=== PATIENT | male | born 1990 | race Hispanic/Latino ===

== ENCOUNTER 2020-06-17 06:11 | Emergency (ER) | payer BC ==
[~2020-06-17] VITALS: Ht 167.6 cm; Wt 77.1 kg
[2020-06-17] MEDS ORDERED: SODIUM CHLORIDE 0.9% 1000ML 1,000 ML IV STA (06:26)
[2020-06-17] MEDS ORDERED: LORAZEPAM INJ 2 MG/ML VIAL IV ONE (06:30)
[2020-06-17] MEDS ORDERED: LACTATED RINGER'S 1,000 ML ONE (06:43)
[2020-06-17] MEDS ORDERED: SODIUM CHLORIDE 0.9% 1000ML 1,000 ML ONE (06:43)
--- NOTE | 2020-06-17 06:57 | Emergency Department Note ---
History of Present Illnes History of Present Illness Chief Complaint: Respiratory History of Present Illness This is a 30 year old male c/o chest discomfort , heart racing for 30 minutes P TA. He went to bed about 9 pm, woke up at 4 am, had some energy tea drink, went to gym, work out and went to work but he felt bad and came to ER. 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 Historian: Patient Arrival Mode: Car Bonderite Operator Required: No Onset (how long ago): minute(s) Radiation: Reports non-radiation Severity: moderate Onset quality: sudden Duration (how long): hour(s) Timing of current episode: intermittent Progression: waxing and waning Chronicity: new Relieving factors: none Exacerbating factors: none Associated symptoms: Reports chest pain, Reports diaphoresis Treatments prior to arrival: none Past Medical/Family History Physician Review I have reviewed the patient's past medical and family history. Any updates have been documented here. Past Medical History Recent Fever: No Clinical Suspicion of Infectio: No New/Unexplained Change in Ment: No Past Medical History: None Social History Smoking Cessation: Never Smoker Alcohol Use: Social Review of Systems Review of Systems Constitutional: Reports no symptoms EENTM: Reports no symptoms Cardiovascular: Reports as per HPI, Reports palpitations Respiratory: Reports no symptoms Gastrointestinal: Reports no symptoms Genitourinary: Reports no symptoms Musculoskeletal: Reports no symptoms Integumentary: Reports no symptoms Neurological: Reports no symptoms Psychological: Reports anxiety Endocrine: Reports no symptoms Hematological/Lymphatic: Reports no symptoms Physical Exam Related Data Allergies: Coded Allergies: No Known Allergies (Unverified , 06/17/20) Triage Vital Signs Vital Signs Date Time Temp Pulse Resp B/P (MAP) Pulse Ox O2 Delivery O2 Flow Rate FiO2 06/17/20 06:17 98.2 92 22 140/90 99 Room Air Vital signs reviewed: Yes Physical Exam CONSTITUTIONAL Constitutional: Present well-developed, Present well-nourished HENT HENT: Present normocephalic, Present atraumatic, Present oropharynx clear/moist, Present nose normal HENT L/R: Present left ext ear normal, Present right ext ear normal EYES Eyes: Reports PERRL, Reports conjunctivae normal NECK Neck: Present ROM normal PULMONARY Pulmonary: Present effort normal, Present breath sounds normal CARDIOVASCULAR Cardiovascular: Present regular rhythm, Present heart sounds normal, Present capillary refill normal, Present normal rate GASTROINTESTINAL Abdominal: Present soft, Present nontender, Present bowel sounds normal GENITOURINARY Genitourinary: Present exam deferred SKIN Skin: Present warm, Present dry MUSCULOSKELETAL Musculoskeletal: Present ROM normal NEUROLOGICAL Neurological: Present alert, Present oriented x 3, Present no gross motor or sensory deficits PSYCHOLOGICAL Psychological: Present mood/affect normal, Present judgement normal Results Laboratory Lab results reviewed: Yes Procedures 12 Lead ECG Interpretation ECG Interpretation : ECG: ECG 1 Bonderite Operator: Interpreted by ED physician Date: Jun 17, 2020 Time: 06:42 Prior ECG tracings: reviewed Rhythm: sinus rhythm Rate: normal BPM: 86 QRS axis: normal ST segments normal: Yes T wave inversion: II, III, aVF, V5, V6 T waves flattening: aVR Clinical Impression: abnormal ECG Assessment & Plan Medical Decision Making MDM chest pain, stimulant uses, anxiety Assessment & Plan Final Impression: (1) Palpitations (2) Chest discomfort (3) Abnormal electrocardiogram [ECG] [EKG] Last Vital Signs Date Time Temp Pulse Resp B/P (MAP) Pulse Ox O2 Delivery O2 Flow Rate FiO2 06/17/20 06:17 98.2 92 22 140/90 99 Room Air Medications in the ED Ativan 2 mg IV Physician Attestation Provider Attestation tx to LAKSHMI Benoit MD Jun 17, 2020 06:33
--- OUTSIDE RECORDS SUMMARY | 2020-06-17 07:28 | XMS REPORT | Continuity of Care Document ---
Author Author [facility] Organization [facility] Address [address] [place] [address] Phone Unavailable Care Team Providers Care Centerless Grinder Set Up Operator Name Role Phone Eladio JAFFE, Sarah Alatorre PCP DR NAVIN MAJANO Attphymoises Unavailable FLORECITA FINK Attphymoises Unavailable DR NAVIN MAJANO Admadithya Unavailable Problems This patient has no known problems. Allergies, Adverse Reactions, Alerts This patient has no known allergies or adverse reactions. Social History Social Habit Start Date Stop Date Quantity Comments Source History of tobacco use User of smokeless tobacc o Cristian Mosher Sex Assigned At Jam zofia Vidhi Tobacco use and exposure 2018-10-26 00:00:00 2018-10-26 00:00:00 Form er user Cristian Mosher Alcohol intake 2018-10-26 00:00:00 2018-10-26 00:00:00 Current drinker of alcohol (finding) Cristian Mosher Alcohol Comment 2018-10-26 00:00:00 2018-10-26 00:00:00 social Cristian Mosher Smoking Status Start Date Stop Date Source Never smoker Cristian garay Medications This patient has no known medications. Procedures This patient has no known procedures. Plan of Care Planned Activity Planned Date Details Comments Source Future Scheduled Test 2020-02-15 00:00:00 INFLUENZA VACCINE [code = INFLUENZA VACCINE] Cristian Mosher Encounters Start Date/Time End Date/Time Encounter Type Admission Type Att[facility] [place] Facility Care Department Encounter ID Source 2020-05-19 07:13:00 2020-05-19 12:10:00 Outpatient [facility] [id number] [facility] 2020-03-05 06:19:00 2020-03-05 09:53:00 Outpatient [facility] [id number] [facility] Results Test Description Test Time Test Comments Results Result Comments Source US ABDOMEN COMPLETE [place] [address] Patient Name: ZECHARIAH ALEXANDER MR #: [id number] : 1990 Age/Sex: 27/M Req #: [id number] Adm Physician: Ordered by: DANAE JAFFE, FLORECITA Barnes MD Report #: [id number] Location: US Room/Bed: Procedure: [id number] US/US ABDOMEN COMPLETE Exam Date: Exam Time: REPORT STATUS: Signed PROCEDURE: ABDOMINAL ULTRASOUND COMPARISON: None. INDICATIONS: Elevated ALT FINDINGS: Liver: 14.7 cm in length in the right midclavicular line. Normal hepatic parenchymal echogenicity. No focal mass. Main portal vein: 1.2 cm in caliber. Hepatopedal flow. Gallbladder: Unremarkable in sonographic appearance without wall thickening, shadowing calculus, or pericholecystic fluid. Common Bile Duct: 0.3 cm in caliber. No echogenic filling defect. Sonographic Garcia's sign: Reported as negative. Right kidney: 13.1 cm in length. No solid or cystic mass, echogenic calculi, or hydronephrosis. Normal renal cortical echogenicity. Left kidney: 12.2 cm in length. No solid or cystic mass, echogenic calculi, or hydronephrosis. Normal renal cortical echogenicity. Spleen: 12 cm in length. Uniform parenchymal echotexture. Pancreas: The visualized portions of the pancreas are normal. Inferior vena cava: Patent. Aorta: Non- aneurysmal. Ascites: None. CONCLUSION: Unremarkable abdominal ultrasound. Dictated by: Mann Villalobos M.D. on 06/20/2017 at 12:28 Electronically approved by: Mann Villalobos M.D. on 06/20/2017 at 12:28 Dictated By: MANN VILLALOBOS MD [id number] Transcribed By: EDILSON on 06/20/17 1228 COPY TO: FLORECITA FINK
--- OUTSIDE RECORDS SUMMARY | 2020-06-17 07:28 | XMS REPORT | Clinical Summary ---
Author Author [facility] Organization [facility] Address Unknown Phone Unavailable Care Team Providers Care Lead Miner Name Role Phone Landry Hendricks MD PCP Allergies No Known Active Allergies Medications No known medications Active Problems Not on file Surgical History Surgery Date Site/Laterality Comments SKIN GRAFT FULL THICKNESS Right LEG Social History Date Tobacco Use Types Packs/Day Years Used Never Smoker Smokeless Tobacco: Former Quit: 2018 User Drinks/Week oz/Week Comments Alcohol Use social Yes Sex Assigned at Date Recorded Not on file Last Filed Vital Signs Not on file Plan of Treatment Health Maintenance Due Date Last Done Comments INFLUENZA VACCINE 02/15/2020 Results Not on fileafter 06/17/2019 Insurance Type Payer Benefit Subscriber ID Effective Phone Address Plan / Dates Group PPO BCBS BCBS [id number] 2017- CHOICE Present PPO/MANDO DESAI PPO Advance Directives For more information, please contact: [phone] Patient Driller Helper Explanation Type Date Recorded Advance Directives, Living Will and Medical Power of Prosthetics Assistant
--- NOTE | 2020-06-17 07:33 | Diagnostic Imaging Report ---
EXAMINATION: CXR 2 VIEW - HOPD INDICATION: ^chest pain palpitation COMPARISON: None FINDINGS: TUBES and LINES: None. LUNGS: Normal lung volumes. Lungs are clear. No consolidations. PLEURA: No pleural effusion or pneumothorax. HEART AND MEDIASTINUM: The cardiomediastinal silhouette is unremarkable. BONES AND SOFT TISSUES: No acute osseous lesion. Soft tissues are unremarkable. UPPER ABDOMEN: No free air under the diaphragm. IMPRESSION: No acute thoracic radiographic abnormality. Signed by: Marc Chen DO on 06/17/2020 7:29 AM
== END 2020-06-17 08:45 | disposition home or self-care (01) ==
LOC: FSED 07:00
DX: R07.89 Other chest pain (principal); R00.2 Palpitations; R94.31 Abnormal electrocardiogram [ECG] [EKG]
CPT/HCPCS: 71046; 80053; 82553; 84484; 85025; 93005; 99284; J2060; J7030; J7121

== ENCOUNTER → 2020-08-14 | Outpatient (CLI) | payer BC ==
[~2020-08-14] MED LIST: IOPAMIDOL 370 MG/ML 200 ML INFUS..BTL INJ ONE; SODIUM CHLORIDE 0.9% 50ML 50 ML ONE
== END ==
LOC: CT 06:49
PROVIDERS: ATTEND Otolaryngology
DX: J38.00 Paralysis of vocal cords and larynx, unspecified (principal)
CPT/HCPCS: 70491; Q9967